=== PATIENT | female | born 1985 | race Caucasian/White ===

== ENCOUNTER → 2017-01-24 | Outpatient (CLI) | payer MEDICAID, SELFPAY | PROVIDERS: Visit Provider Nurse Practitioner Obstetrics & Gynecology | DX: Z34.80 Encounter for supervision of other normal pregnancy, unspecified trimester (principal) | CPT/HCPCS: 82731 ==

== ENCOUNTER → 2017-02-15 14:16 | Outpatient (REF) | payer MEDICAID, SELFPAY | LOC: LAB 14:16 | PROVIDERS: Visit Provider Nurse Practitioner Obstetrics & Gynecology | DX: Z34.90 Encounter for supervision of normal pregnancy, unspecified, unspecified trimester (principal) | CPT/HCPCS: 86403 ==

== ENCOUNTER → 2017-02-16 15:29 | Outpatient (REF) | payer MEDICAID, SELFPAY | LOC: LAB 15:29 | PROVIDERS: Visit Provider Nurse Practitioner Obstetrics & Gynecology ==

== ENCOUNTER 2017-02-24 23:45 | Inpatient (IN) | payer MEDICAID, SELFPAY ==
[2017-02-24 23:11] VITALS: PULSE 99; RESP 18; TEMP 36.8; O2SAT 99; BMI 27.1
[2017-02-25 00:05] LABS: Basophils % 0.2 % (0.1-2.0); Eosinophils # 0.2 K/mm3 (0.0-0.4); Eosinophils % 1.3 % (0.1-12.0); Hematocrit 34.6 % (37.0-47.0); Hemoglobin 11.5 g/dL (12.2-16.2); Lymphocytes # 2.2 K/mm3 (0.7-4.5); Lymphocytes % 18.7 K/mm3 (10-50); Mean Corpuscular HGB Conc 33.3 g/dL (31.8-35.4); Mean Corpuscular Hemoglobin 31.8 pg (27.0-31.2); Mean Corpuscular Volume 95.5 fl (81-99); Mean Platelet Volume 7.8 fl (7.4-10.4); Monocytes # 0.4 K/mm3 (0.1-1.0); Monocytes % 3.4 % (1.7-9.3); Neutrophils % 76.5 % (37.0-80.0); Platelet Count 306 K/mm3 (142-424); Red Blood Count 3.63 M/mm3 (4.20-5.40); Red Cell Distribution Width 12.9 % (11.5-17.5); White Blood Count 11.8 K/mm3 (4.8-10.8)
[2017-02-25 00:34] LABS: Fetal Membrane Rupture (Rapid) Positive (Negative)
--- NOTE | 2017-02-25 01:26 | HMH.ANESCL ---
[facility] Anesthesia Checklist - Patient Identification Patient Identification: Arm Band, Verbal (Name & ) - Structural Data Admitted From: Home Planned Operative Procedure/s: labor epidural Consent for Planned Operative Procedure(s) Verified: Yes - Chart Verification Results Verified: CBC - Additional verifications Patient : No Anesthesia Reactions: No Hx Blood Transfusions: No Blood Transfusion Reaction: No Cephalosporin Allergy: No Previous Colonoscopy: No - Cardiovascular Assessment Heart Sounds: S1 & S2 Pulse Strength: Strong Pulse Rhythm: Regular Peripheral Edema: No - Airway Assessment C-Spine Mobility Assessed: Yes TMJ Mobility Assessed: Yes Dentition: Good Dentition - Neurological Assessment Level of Consciousness: Awake, Alert, Appropriate Hx Seizures: No Numbness or tingling in extremities: No - Anesthesia Plan Anesthesia Risk discussed: Yes Anesthesia Plan: Verified ASA Class: II Anesthesia Type: Epidural [facility] Anesthesia HX I have reviewed the patient's past medical history: Yes Medical History: Reports:: Migraine, MRSA Other Surgeries: Yes: No Previous Surgery Amputation: No Fractures: No *Family Hx:: Hypertension, Cancer
--- NOTE | 2017-02-25 05:35 | HMH.OBAPHP ---
OB - H&P: HPI Antepartum - History of Present Illness Chief complaint: contractions - History of Present Obstetrical complications: none Medical complications: none Planning to breastfeed?: No - Labs Blood type: A (+) positive Rubella: immune RPR/VDRL: nonreactive GBS status: positive HBsAG: negative HMH History I have reviewed the patient's past medical history: Yes Medical History: Reports:: Migraine, MRSA Denies:: Seizures Other Medical History: Reports: Other ( labor with delivery @ 33 & 36 weeks). Denies: Blood Transfusion Reaction Other Surgeries: Yes: Other (deviated nasal septum) Amputation: No Fractures: No - *Social History Educational Level: Completed High School Smoking Status: Current every day smoker Tobacco Type: cigarettes # Packs/Day (cigarettes): 1 Alcohol Intake: never Alcohol Intake Frequency:: other Substance Use Type: denies use Occupational Status: employed Housing: house Household Members: family - Psychiatric History Expresses thoughts of harming self/others: None Suicide Plan Description: No Plan *Family Hx:: Hypertension, Cancer [facility] history: Spontaneous , Additional [facility] History ( labor/delivery) : 6 Para: 4 Review of Systems - Review of Systems + contractions x 4 hours. Denies VB but noted LOF after arrival to hospital. + grossly ruptured on exam; cervix 3-4cm. - Constitutional Comments: no complaints - Eyes Comments: no complaints - *Cardiovascular Comments: no complaints - *Respiratory Comments: no complaints - *Gastrointestinal Comments: denies N/V/D - *Genitourinary Comments: contractions, leakage of fluid - *Musculoskeletal Comments: no complaints - *Neurologic Comments: denies current/recent headaches Meds Home Medications Medication Instructions Recorded Confirmed Type ferrous sulfate 325 mg (65 mg 325 mg PO TID tab 02/03/17 02/25/17 History iron) tablet 1 tab PO QDAY 02/03/17 02/25/17 History vitamin,calcium,ghqqnjcd-ebru-aplij acid tablet Allergies Allergy/AdvReac Type Severity Reaction Status Date / Time No Known Allergies Allergy Verified 02/03/17 09:05 OB - H&P: Exam - Physical Exam Vital signs: Temp Pulse Resp Pulse Ox 98.2 F 99 H 18 99 02/24/17 23:11 02/24/17 23:11 02/24/17 23:11 02/24/17 23:11 - Constitutional no acute distress, average body habitus - Routine HEENT Exam Head: Present: normocephalic, atraumatic ENT: Present: mucous membranes moist - Routine Respiratory Exam Present: CTA bilaterally - Routine Cardiovascular Exam Present: RRR - Routine Abdominal Exam Present: soft (NT/ND) - Routine Exam External: Present: normal urethra appearance Comments: cervix 3-4/80/-1 Grossly ruptured with + pool - Routine Extremities Exam Present: pulses intact - Routine Skin Exam Present: intact, dry - Routine Neurological Exam Present: alert, oriented X3, normal speech - Routine Psychiatric Exam Present: normal affect - Detailed Labor and Delivery Exam Dilation (cm): 3 Effacement (%): 80 Cervix position: mid station: -1 Consistency: soft Membranes: ruptured Amniotic fluid: clear Baseline heart rate: 140 monitor decelerations: Periodic (intermittent late and mild variable decelerations) Contraction frequency (min): 3 OB - Results - Labs Labs: Short CBC 02/24/17 Range/Units 23:50 WBC 11.8 H (4.8-10.8) K/mm3 Hgb 11.5 L (12.2-16.2) g/dL Hct 34.6 L (37.0-47.0) % Plt Count 306 (142-424) K/mm3 - Impressions Active labor at term SROM Intermittent heart rate decelerations GBS positive Tobacco abuse Anemia History of delivery x2 OB - A/P Antepartum (1) Rupture of membranes with clear amniotic fluid Current visit: Yes Status: Acute Admit to L&D Anticipate
--- NOTE | 2017-02-25 05:44 | P.HP_ITS ---
OB - H&P: HPI Antepartum - History of Present Illness Chief complaint: contractions - History of Present Obstetrical complications: none Medical complications: none Planning to breastfeed?: No - Labs Blood type: A (+) positive Rubella: immune RPR/VDRL: nonreactive GBS status: positive HBsAG: negative HMH History I have reviewed the patient's past medical history: Yes Medical History: Reports:: Migraine, MRSA Denies:: Seizures Other Medical History: Reports: Other ( labor with delivery @ 33 & 36 weeks). Denies: Blood Transfusion Reaction Other Surgeries: Yes: Other (deviated nasal septum) Amputation: No Fractures: No - *Social History Educational Level: Completed High School Smoking Status: Current every day smoker Tobacco Type: cigarettes # Packs/Day (cigarettes): 1 Alcohol Intake: never Alcohol Intake Frequency:: other Substance Use Type: denies use Occupational Status: employed Housing: house Household Members: family - Psychiatric History Expresses thoughts of harming self/others: None Suicide Plan Description: No Plan *Family Hx:: Hypertension, Cancer [employer] history: Spontaneous , Additional [employer] History ( labor/ delivery) : 6 Para: 4 Review of Systems - Review of Systems + contractions x 4 hours. Denies VB but noted LOF after arrival to hospital. + grossly ruptured on exam; cervix 3-4cm. - Constitutional Comments: no complaints - Eyes Comments: no complaints - *Cardiovascular Comments: no complaints - *Respiratory Comments: no complaints - *Gastrointestinal Comments: denies N/V/D - *Genitourinary Comments: contractions, leakage of fluid - *Musculoskeletal Comments: no complaints - *Neurologic Comments: denies current/recent headaches Meds Home Medications Medication Instructions Recorded Confirmed Type ferrous sulfate 325 mg (65 mg 325 mg PO TID tab 02/03/17 02/25/17 History iron) tablet 1 tab PO QDAY 02/03/17 02/25/17 History vitamin,calcium,bvekfjce-ypok-jmpdi acid tablet Allergies Allergy/AdvReac Type Severity Reaction Status Date / Time No Known Allergies Allergy Verified 02/03/17 09:05 OB - H&P: Exam - Physical Exam Vital signs: Temp Pulse Resp Pulse Ox 98.2 F 99 H 18 99 02/24/17 23:11 02/24/17 23:11 02/24/17 23:11 02/24/17 23:11 - Constitutional no acute distress, average body habitus - Routine HEENT Exam Head: Present: normocephalic, atraumatic ENT: Present: mucous membranes moist - Routine Respiratory Exam Present: CTA bilaterally - Routine Cardiovascular Exam Present: RRR - Routine Abdominal Exam Present: soft (NT/ND) - Routine Exam External: Present: normal urethra appearance Comments: cervix 3-4/80/-1 Grossly ruptured with + pool - Routine Extremities Exam Present: pulses intact - Routine Skin Exam Present: intact, dry - Routine Neurological Exam Present: alert, oriented X3, normal speech - Routine Psychiatric Exam Present: normal affect - Detailed Labor and Delivery Exam Dilation (cm): 3 Effacement (%): 80 Cervix position: mid
--- NOTE | 2017-02-25 08:31 | HMH.DN ---
- Delivery Note Delivery Date:: 02/25/17 Delivery Time:: 06:00 Anesthesia Type: Epidural Was labor medically induced?: No Gestational age (weeks): 39 Infant delivered prior to 39 weeks?: No Gender: Male at 1 minute: 9 at 5 minutes: 9 LAC or MLE?: LAC Delivery Procedure:: Spontaneous vaginal delivery of vigorous liveborn male , over intact perineum. Nuchal cord x 1 reduced on perineum; no shoulder dystocia at time of delivery. Infant handed to nursing staff for assessment and SATHYA with mother. Placenta delivered spontaneously and noted intact. No perineal, vaginal or cervical lacerations. Bilateral periurethral lacerations present; hemostasis achieved with direct pressure and no repair needed. EBL 300cc. Mom/baby stable to recovery. Laceration:: labial (bilateral periurethral lacerations; no repair) Placental Delivery Description: Spontaneous
[2017-02-26 06:46] LABS: Hemoglobin 9.7 g/dL (12.2-16.2)
[2017-02-26 06:49] LABS: Hematocrit 28.8 % (37.0-47.0)
--- NOTE | 2017-02-26 13:45 | HMH.ACPN ---
Internal Medicine - PN: Subj *Date: 02/26/17 *Time: 12:45 Interval history: PPD #1 Ambulating, voiding and tolerating regular diet. Lochia appropriate; Hgb 9.7 (11.5 at admission) Mild/moderate cramping; asking for narcotics in addition to NSAIDS No repair with delivery Patient asking for discharge today even though infant will not be discharged until tomorrow. She states that she needs to go home to get her other children ready for school tomorrow and set their clothes out. Her children were being cared for by her oldest son (16 years old) yesterday and overnight, but reports that her father is with them today. tool machine shop supervisor has been called to assist with this request, since hospital policy requires an adult stay with any inpatient admissions under age 16, so she would need to stay with the infant even if she were discharged. Additionally, there is some concern about inconsistencies between record and patient report regarding care. Last documented visit in available record was at 18 weeks (10/2016), which was faxed to L&D 10/28/16 and it is unclear whether she had any additional visits with the office and it is a matter of a missing record, or whether she has not been seen since that time. The FOB also lives approx 3 hours away in [place] and will not be present with her after discharge; the patient was visiting him at the time she went into labor late monday night/monday morning, and drove herself from [place] back to [place] to the hospital. She wants to drive herself home at this time, but has recently been given narcotic pain medication. Given the various issues involved, the patient would be benefited by a social work consult prior to discharge, to ascertain whether any additional services are needed for this family. Exam Vital signs and Labs for Last 24 Hours: Temp Pulse Resp Pulse Ox 98.2 F 99 H 18 99 02/24/17 23:11 02/24/17 23:11 02/24/17 23:11 02/24/17 23:11 Laboratory Results - last 24 hr 02/26/17 06:15: Hgb 9.7 L, Hct 28.8 L I & O for Last 24 hours: Intake & Output 01/19/18 01/20/18 01/21/18 01/22/18 11:59 11:59 11:59 11:59 Weight 153 lb - Constitutional no acute distress - *Routine HEENT Exam ENT: Present: mucous membranes moist - *Routine Abdominal Exam Present: soft (non-tender/non-distended), normoactive bowel sounds - *Routine Extremities Exam Present: edema (trace) - *Routine Skin Exam Present: intact, dry, alopecia Assessment and Plan (1) Rupture of membranes with clear amniotic fluid Current visit: Yes Status: Acute Category: Medical Code(s): O42.019 - premature rupture of membranes, onset of labor within 24 hours of rupture, unspecified trimester (2) History of delivery, currently in third trimester Current visit: Yes Status: Chronic Category: Medical Code(s): O09.213 - Supervision of with history of pre-term labor, third trimester (3) Group B streptococcal infection during Current visit: Yes Status: Acute Category: Medical Code(s): O98.819 - Other maternal infectious and parasitic diseases complicating , unspecified trimester; B95.1 - Streptococcus, group B, as the cause of diseases classified elsewhere (4) Tobacco smoking affecting in third trimester Current visit: Yes Status: Chronic Category: Medical Code(s): O99.333 - Smoking (tobacco) complicating , third trimester (5) heart rate decelerations affecting management of mother Current visit: Yes Status: Acute Category: Medical Code(s): O36.8390 - Maternal care for abnormalities of the heart rate or rhythm, unspecified trimester, not applicable or unspecified (6) Anemia complicating , third trimester Current visit: Yes Status: Chronic Category: Medical Code(s): O99.013 - Anemia complicating , third trimester (7)
--- NOTE | 2017-02-26 13:57 | P.PN_ITS ---
Internal Medicine - PN: Subj *Date: 02/26/17 *Time: 12:45 Interval history: PPD #1 Ambulating, voiding and tolerating regular diet. Lochia appropriate; Hgb 9.7 (11.5 at admission) Mild/moderate cramping; asking for narcotics in addition to NSAIDS No repair with delivery Patient asking for discharge today even though infant will not be discharged until tomorrow. She states that she needs to go home to get her other children ready for school tomorrow and set their clothes out. Her children were being cared for by her oldest son (16 years old) yesterday and overnight, but reports that her father is with them today. acoustical tile carpenters supervisor has been called to assist with this request, since hospital policy requires an adult stay with any inpatient admissions under age 16, so she would need to stay with the infant even if she were discharged. Additionally, there is some concern about inconsistencies between record and patient report regarding care. Last documented visit in available record was at 18 weeks (10/2016), which was faxed to L&D 10/28/16 and it is unclear whether she had any additional visits with the office and it is a matter of a missing record, or whether she has not been seen since that time. The FOB also lives approx 3 hours away in [place] and will not be present with her after discharge; the patient was visiting him at the time she went into labor late monday night/monday morning, and drove herself from [place] back to [place] to the hospital. She wants to drive herself home at this time, but has recently been given narcotic pain medication. Given the various issues involved, the patient would be benefited by a social work consult prior to discharge, to ascertain whether any additional services are needed for this family. Exam Vital signs and Labs for Last 24 Hours: Temp Pulse Resp Pulse Ox 98.2 F 99 H 18 99 02/24/17 23:11 02/24/17 23:11 02/24/17 23:11 02/24/17 23:11 Laboratory Results - last 24 hr 02/26/17 06:15: Hgb 9.7 L, Hct 28.8 L I & O for Last 24 hours: Intake & Output 01/19/18 01/20/18 01/21/18 01/22/18 11:59 11:59 11:59 11:59 Weight 153 lb - Constitutional no acute distress - *Routine HEENT Exam ENT: Present: mucous membranes moist - *Routine Abdominal Exam Present: soft (non-tender/non-distended), normoactive bowel sounds - *Routine Extremities Exam Present: edema (trace) - *Routine Skin Exam Present: intact, dry, alopecia Assessment and Plan (1) Rupture of membranes with clear amniotic fluid Current visit: Yes Status: Acute Category: Medical Code(s): O42.019 - premature rupture of membranes, onset of labor within 24 hours of rupture, unspecified trimester (2) History of delivery, currently in third trimester Current visit: Yes Status: Chronic Category: Medical Code(s): O09.213 - Supervision of with history of pre-term labor, third trimester (3) Group B streptococcal infection during Current visit: Yes Status: Acute Category: Medical Code(s): O98.819 - Other maternal infectious and parasitic diseases complicating , unspecified trimester; B95.1 - Streptococcus, group B, as the cause of diseases classified elsewhere (4) Tobacco smoking affecting in third trimester Current visit: Yes Status: Chronic Category: Medical Code(s): O99.333 - Smoking (tobacco) complicating , third trimester (5) heart rate decelerations
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
== END 2017-02-26 16:35 | disposition home or self-care (01) | DRG 775 ==
PROVIDERS: Admitting Provider Obstetrics & Gynecology; PCP Nurse Practitioner Obstetrics & Gynecology; Visit Provider Nurse Practitioner Obstetrics & Gynecology
DX: O70.0 First degree perineal laceration during delivery; Z37.0 Single live birth; Z3A.39 39 weeks gestation of pregnancy; O69.81X0 Labor and delivery complicated by cord around neck, without compression, not applicable or unspecified
CPT/HCPCS: 59409; 36415; 59025; 84112; 85014; 85018; 85025; 86850; 94761; J0290

== ENCOUNTER → 2017-03-22 17:07 | Outpatient (REF) | payer MEDICAID, SELFPAY ==
[2017-03-25 19:04] LABS: Neisseria gonorrhoeae, NAA Negative (Negative)
== END ==
LOC: LAB 17:07
PROVIDERS: Visit Provider Nurse Practitioner Obstetrics & Gynecology
DX: Z39.2 Encounter for routine postpartum follow-up (principal); N89.8 Other specified noninflammatory disorders of vagina; L98.9 Disorder of the skin and subcutaneous tissue, unspecified
CPT/HCPCS: 87070; 87077; 87186; 87205; 87491; 87591

== ENCOUNTER → 2018-06-08 09:28 | Outpatient (CLI) | payer MEDICAID, SELFPAY ==
--- NOTE | 2018-06-08 09:40 | XR_ITS ---
XR wrist RT min 3V HISTORY right wrist pain ITS.REASON: ap lateral oblique ORDERING PHYSICIAN: Samra Pal MD PATIENT AGE: 33 years Comparison: None FINDINGS: No fracture or dislocation. No lytic or blastic change. There is normal mineralization.. The joint spaces are well-preserved. No significant degenerative/arthritic changes. No erosive changes evident.. There is a small well-circumscribed calcific density along the radial aspect of the ulnar styloid process and could be related to an old injury. IMPRESSION: No acute finding
== END ==
PROVIDERS: PCP Family Medicine; Visit Provider Orthopaedic Surgery
DX: M25.531 Pain in right wrist (principal)
CPT/HCPCS: 73110

== ENCOUNTER → 2020-03-25 15:08 | Outpatient (CLI) | payer OTHER, SELFPAY ==
[2020-03-25 15:46] LABS: Basophils # 0.1 K/mm3 (0-0.2); Basophils % 0.6 % (0.1-2.0); Eosinophils # 0.1 K/mm3 (0.0-0.4); Eosinophils % 1.3 % (0.1-12.0); Hematocrit 38.6 % (37.0-47.0); Hemoglobin 13.1 g/dL (12.2-16.2); Lymphocytes # 3.6 K/mm3 (0.7-4.5); Lymphocytes % 41.8 % (10-50); Mean Corpuscular Hemoglobin 31.6 pg (27.0-31.2); Mean Corpuscular Volume 92.8 fl (81-99); Mean Platelet Volume 6.8 fl (7.4-10.4); Monocytes # 0.3 K/mm3 (0.1-1.0); Neutrophils # 4.6 K/mm3 (1.8-7.8); Neutrophils % 53.3 % (37.0-80.0); Platelet Count 280 K/mm3 (142-424); Red Blood Count 4.16 M/mm3 (4.20-5.40); Red Cell Distribution Width 12.8 % (11.5-17.5); White Blood Count 8.7 K/mm3 (4.8-10.8)
[2020-03-27 17:36] LABS: HIV Screen 4th Generation wRfx Non Reactive (Non Reactive); Hepatitis B Surface Antigen Negative (Negative); Hepatitis C Antibody <0.1 s/co ratio (0.0-0.9); Rapid Plasma Reagin Ab Titer Non Reactive (NonRea<1:1); Rubella Antibodies, IgG 1.84 index (Immune >0.99)
== END ==
PROVIDERS: Visit Provider Nurse Practitioner Obstetrics & Gynecology
DX: Z34.90 Encounter for supervision of normal pregnancy, unspecified, unspecified trimester (principal); Z3A.01 Less than 8 weeks gestation of pregnancy
CPT/HCPCS: 36415; 85025; 86592; 86703; 86762; 86850; 87340; 87380; G0432

== ENCOUNTER → 2020-03-30 10:07 | Outpatient (CLI) | payer OTHER, SELFPAY ==
--- NOTE | 2020-03-30 10:13 | US_ITS ---
PROCEDURE: US OB <= 14 WEEKS FETUS CLINICAL INDICATION: US OB Before 14 wks for DATES COMPARISON: No exams were available for comparison FINDINGS: An intrauterine gestational sac is present with a pole with a crown-rump length of 0.44cm correlating to gestational age of 6weeks 1day. heart tones are present with an FHR of 116bpm. Yolk sac is noted. 2 cm left corpus luteum cyst IMPRESSION: Live IUP at 6 weeks 1 day Estimated due date by Ultrasound is 11/22/2020 Dictated by: Hira Rodríguez MD 03/30/2020 16:11 Hira Rodríguez MD in [place] 03/30/2020 16:11
== END ==
PROVIDERS: PCP Family Medicine; Visit Provider Nurse Practitioner Obstetrics & Gynecology
DX: O26.841 Uterine size-date discrepancy, first trimester (principal)
CPT/HCPCS: 76801

== ENCOUNTER → 2020-04-17 07:30 | Outpatient (CLI) | payer OTHER, SELFPAY ==
[2020-04-17 08:38] LABS: Chloride 107 mmol/L (98-107); Sodium 138 mmol/L (136-145)
[2020-04-17 08:39] LABS: Potassium 4.5 mmoL/L (3.5-5.1)
[2020-04-17 08:41] LABS: Alanine Aminotransferase 22 U/L (12-78); Albumin Level 4.2 g/dl (3.5-5.0); Albumin/Globulin Ratio 1.4 (1.1-1.8); Alkaline Phosphatase 56 U/L (38-126); Anion Gap 9.5 mEq/L (5-15); Aspartate Amino Transferase 26 U/L (14-36); Bilirubin,Total 0.6 mg/dl (0.2-1.3); Blood Urea Nitrogen 9 mg/dl (7-17); Calcium 9.3 mg/dl (8.4-10.2); Carbon Dioxide 26 mmol/L (22.0-30.0); Estimated Glomerular Filt Rate 139 ml/min (>60); GFR (African American) 168 ML/MIN (>60); Glucose 100 mg/dl (74-100); Total Protein,Serum 7.2 g/dl (6.3-8.2)
[2020-04-24 14:35] LABS: Bile Acids 1.8
== END ==
PROVIDERS: Visit Provider Nurse Practitioner Obstetrics & Gynecology
DX: O26.619 Liver and biliary tract disorders in pregnancy, unspecified trimester (principal); K83.1 Obstruction of bile duct
CPT/HCPCS: 36415; 80053; 82239

== ENCOUNTER → 2020-05-19 14:36 | Outpatient (CLI) | payer OTHER, SELFPAY | PROVIDERS: Visit Provider Nurse Practitioner Obstetrics & Gynecology | DX: Z36.0 Encounter for antenatal screening for chromosomal anomalies (principal) | CPT/HCPCS: 36415 ==

== ENCOUNTER → 2020-07-10 13:02 | Outpatient (CLI) | payer OTHER, SELFPAY ==
--- NOTE | 2020-07-10 13:02 | US_ITS ---
PROCEDURE: US OB >= 14 WEEKS FETUS CLINICAL INDICATION: 20 weeks gestation COMPARISON: US US OB <= 14 WEEKS FETUS from 03/30/2020 FINDINGS: Single live intrauterine gestation in cephalic presentation. heart and body motion noted. The cervix is closed and measures 4 cm in length. The placenta is fundal and anterior. Placenta is grade 1. Complete survey performed and was unremarkable on the submitted images as in PACS. No discrete anomalies identified on survey imaging by technologist. Active fetus. Three-vessel cord with satisfactory umbilical cord insertion. 4- chamber heart noted. Survey of brain & ventricles Unremarkable. Face and neck survey unremarkable. Diaphragm and chest views unremarkable. Abdomen: Both kidneys noted and unremarkable. Stomach noted and satisfactory. Spine: Survey of the spine satisfactory with no anomalies identified nor imaged. Both arms and legs noted. Amniotic Fluid: Adequate. Maternal adnexa: No significant findings. Measurements: Average ultrasound age 21weeks. Gestational Age 21weeks Estimated due date by ultrasound age 1011/20/2020. Estimated weight 382g BPD = 21weeks 4days OFD = 21weeks 1day HC = 20weeks 4days AC = 21weeks FL = 20weeks 6days Growth Percentile= 53% Heart Rate = 143bpm Cerebellum = 20weeks 6days Humerus = 20weeks 5days HC/AC is 1.15 CI is 0.81 FL/BPD is 0.67 FL/AC is 0.22 IMPRESSION: Live IUP which is in cephalic presentation with an average ultrasound age of 21 weeks 0 days. No obvious anomalies. Please see above for detail. Dictated by: Hira Rodríguez MD 07/10/2020 15:58 Hira Rodríguez MD in OV 07/10/2020 15:58
== END ==
PROVIDERS: PCP Family Medicine; Visit Provider Nurse Practitioner Obstetrics & Gynecology
DX: Z34.90 Encounter for supervision of normal pregnancy, unspecified, unspecified trimester (principal); Z3A.20 20 weeks gestation of pregnancy
CPT/HCPCS: 76805

== ENCOUNTER → 2020-09-09 10:37 | Outpatient (CLI) | payer OTHER, SELFPAY | PROVIDERS: Visit Provider Nurse Practitioner Obstetrics & Gynecology | DX: Z34.90 Encounter for supervision of normal pregnancy, unspecified, unspecified trimester (principal) | CPT/HCPCS: U0003 ==

== ENCOUNTER → 2020-09-12 08:58 | Outpatient (CLI) | payer OTHER, SELFPAY ==
[2020-09-12 09:23] LABS: Glucose,Fasting 92 mg/dl (74-100)
[2020-09-12 11:15] LABS: Glucose 1 Hour 126 mg/dL (74-100)
== END ==
PROVIDERS: Visit Provider Nurse Practitioner Obstetrics & Gynecology
DX: Z34.90 Encounter for supervision of normal pregnancy, unspecified, unspecified trimester (principal)
CPT/HCPCS: 82951

== ENCOUNTER → 2020-10-15 09:49 | Outpatient (CLI) | payer OTHER, SELFPAY ==
--- NOTE | 2020-10-15 10:07 | US_ITS ---
PROCEDURE: US KIDNEY CLINICAL INDICATION: COMPARISON: No exams were available for comparison FINDINGS: The right kidney is [id number]. No hydronephrosis, cortical thinning, or renal mass or perinephric fluid collection is evident. The left kidney is [id number]. No hydronephrosis, cortical thinning, or renal mass or perinephric fluid collection is evident. Incidental note made of cholelithiasis. IMPRESSION: Unremarkable bilateral renal ultrasound Cholelithiasis Dictated by: Hira Rodríguez MD 10/15/2020 17:27 Hira Rodríguez MD in OV 10/15/2020 17:27
== END ==
PROVIDERS: PCP Family Medicine; Visit Provider Nurse Practitioner Obstetrics & Gynecology
DX: Z34.90 Encounter for supervision of normal pregnancy, unspecified, unspecified trimester (principal); N20.0 Calculus of kidney
CPT/HCPCS: 76770

== ENCOUNTER → 2020-10-20 17:39 | Outpatient (CLI) | payer OTHER, SELFPAY | PROVIDERS: Visit Provider Nurse Practitioner Obstetrics & Gynecology | DX: Z34.90 Encounter for supervision of normal pregnancy, unspecified, unspecified trimester (principal); Z3A.35 35 weeks gestation of pregnancy | CPT/HCPCS: 86403 ==

== ENCOUNTER → 2020-10-30 09:21 | Outpatient (CLI) | payer OTHER, SELFPAY ==
--- NOTE | 2020-10-30 09:21 | US_ITS ---
PROCEDURE: US OB BIOPHYSICAL PROFILE CLINICAL INDICATION: Pt measuring Larger than dates TECHNIQUE: FINDINGS: Single live fetus is present in cephalic presentation. The cervix is closed measuring 3 cm. heart body motion noted. The placenta is anterior and grade 2. No previa or abruption. Average ultrasound age 36 weeks 5 days. Estimated weight is 3139 g which is 68th percentile BPD: 36weeks 4days OFD: 36weeks 4days HC: 35 weeks 6 days AC: 38 weeks 1 day FL: 36 weeks 1 day heart rate: 153bpm bpm. HC/AC: 0.93 Cephalic index: 0.81 FL/BPD: 0.78 FL/AC: 0.21 Amniotic fluid index: 14.08cm Qualitative AFV: 2 breathing movements: 2 Gross body movements: 2 Tone: 2 Biophysical profile score: 8 Doppler evaluation of the umbilical artery: SD ratio: 2.5 Resistive index: 0.6 No obvious anomalies evident. Placenta: Anterior and grade 2 Cervix: Closed measuring 3 cm IMPRESSION: Live IUP in cephalic presentation with an average ultrasound age 36 weeks 5 days. Estimated weight 3139 g which is 68th percentile. Anterior grade 2 placenta Biophysical profile 8 of 8 with normal amniotic fluid index of 14 cm. Umbilical artery SD ratio unremarkable at 2.5 with an unremarkable resistive index of 0.6 Dictated by: Hira Rodríguez MD 10/30/2020 13:26 Hira Rodríguez MD in OV 10/30/2020 13:26
== END ==
PROVIDERS: PCP Family Medicine; Visit Provider Nurse Practitioner Obstetrics & Gynecology
DX: O36.60X0 Maternal care for excessive fetal growth, unspecified trimester, not applicable or unspecified (principal); Z3A.36 36 weeks gestation of pregnancy
CPT/HCPCS: 76816; 76819

== ENCOUNTER 2020-10-30 22:18 | Inpatient (IN) | payer OTHER, SELFPAY ==
[2020-10-30 20:44] VITALS: BMI 27.4
[2020-10-30 21:01] VITALS: BP 128/89; PULSE 122; RESP 18; TEMP 36.6; O2SAT 97; BMI 27.4
[2020-10-30 21:22] LABS: Microscopic, Urine URINE MICROSCOPIC (MICROSCOPIC)
[2020-10-30 21:30] LABS: Appearance,Urine CLEAR (Clear); Bilirubin,Urine Negative (Negative); Blood, Urine Negative (Negative); Color,Urine YELLOW (Yellow); Glucose,Urine (UA) Negative (Negative); Ketones,Urine Negative (Negative); Leukocyte Esterase,Urine Negative (Negative); Nitrate,Urine Negative (Negative); Protein,Urine TRACE (Negative); Specific Gravity, Urine 1.025 (1.005-1.030); Urobilinogen,Urine 0.2 EU/dl (0.2)
[2020-10-30 21:41] LABS: Barbiturates Screen,Urine Negative ng/ml (<200)
[2020-10-30 21:42] LABS: Amphetamine/Metha Screen,Urine Negative ng/ml (<1000); Benzodiazepines Screen,Urine Negative ng/ml (<200)
[2020-10-30 21:43] LABS: Cannabinoid Screen,Urine Negative ng/ml (<50)
[2020-10-30 21:44] LABS: Cocaine Screen,Urine Negative ng/ml (<300); Methadone Screen,Urine Negative ng/ml (<300)
[2020-10-30 21:45] LABS: Opiate Screen,Urine Negative ng/ml (<300)
[2020-10-30 21:46] LABS: Phencyclidine Screen,Urine Negative ng/ml (<25)
[2020-10-30 22:37] LABS: Coronavirus 19, PCR Not Detected (NotDetected); Influenza A, PCR Not Detected (NotDetected); Influenza B, PCR Not Detected (NotDetected)
[2020-10-30 22:42] LABS: Bacteria,Urine 1+ /lpf; RBC,Urine Occasional #/hpf (0-3); Squamous Epithelial Cell,Urine Occasional #/hpf (0-5)
[2020-10-30 22:57] LABS: Basophils % 0.4 % (0.1-2.0); Eosinophils # 0.1 K/mm3 (0.0-0.4); Eosinophils % 1.2 % (0.1-12.0); Hematocrit 28.6 % (37.0-47.0); Hemoglobin 9.9 g/dL (12.2-16.2); Lymphocytes # 2.4 K/mm3 (0.7-4.5); Lymphocytes % 24.4 % (10-50); Mean Corpuscular HGB Conc 34.6 g/dL (31.8-35.4); Mean Corpuscular Hemoglobin 33.7 pg (27.0-31.2); Mean Corpuscular Volume 97.3 fl (81-99); Mean Platelet Volume 8.7 fl (7.4-10.4); Monocytes # 0.4 K/mm3 (0.1-1.0); Monocytes % 3.5 % (1.7-9.3); Neutrophils % 70.5 % (37.0-80.0); Platelet Count 333 K/mm3 (142-424); Red Blood Count 2.94 M/mm3 (4.20-5.40); Red Cell Distribution Width 14.4 % (11.5-17.5); White Blood Count 9.9 K/mm3 (4.8-10.8)
--- NOTE | 2020-10-30 23:57 | HMH.OBAPHP ---
OB - H&P: HPI Antepartum - History of Present Illness Chief complaint: Contractions and changes in her cervix History of present illness: She is a 35-year-old 6 para 5 at 36 and 5 weeks gestational age. She came in having regular contractions. She changed her cervix from 4 cm to 6 cm. She declined Brethine. She did receive a bolus of fluid but this did not settle her contractions. As result of that we are admitting her for labor and delivery. - History of Present Criteria for establishing EDC:: LMP confirmed by 1st trimester US care: good care Ultrasounds: normal 1st trimester US, normal mid trimester US Obstetrical complications: labor Medical complications: none - Labs Blood type: A (+) positive Rubella: immune RPR/VDRL: nonreactive GBS status: negative HBsAG: negative [facility] History I have reviewed the patient's past medical history: Yes Medical History: Reports:: Migraine, MRSA Denies:: Seizures *Have you ever received a pneumonia vaccine?: No *Have you received a flu vaccine this season?: No Other Medical History: Reports: Other. Denies: Blood Transfusion Reaction Other Surgeries: Yes: No Previous Surgery, Other. No: Amputation: No Fractures: No - *Social History Smoking Status: Current every day smoker Tobacco Type: cigarettes # Packs/Day (cigarettes): 1 Alcohol Intake: never Alcohol Intake Frequency:: other Substance Use Type: denies use *Occupational Status:: employed Housing: house Household Members: family *Travel in the last 8 weeks: None Family Hx:: Hypertension, Cancer APPLICATION PACKAGING SPECIALIST history: Spontaneous , Additional APPLICATION PACKAGING SPECIALIST History Para: 5 Review of Systems - Review of Systems Review of systems:: pertinent systems reviewed and negative unless documented below Meds Home Medications Medication Instructions Recorded Confirmed Type vitamins no.119-iron 1 tab PO DAILY 30 Days #30 tab 03/25/20 10/28/20 Rx fumarate 29 mg-folic acid 1 mg tablet acetaminophen 300 mg-codeine 30 mg 1 tab PO Q6H PRN #20 tab 06/04/20 10/28/20 Rx tablet ferrous sulfate 325 mg (65 mg 325 mg PO DAILY #30 tab 06/16/20 10/28/20 Rx iron) tablet acetaminophen 300 mg-codeine 30 mg 1 tab PO TID PRN #20 tab 10/14/20 10/28/20 Rx tablet nitrofurantoin 100 mg PO BID 10/14/20 10/28/20 History monohydrate/macrocrystals 100 mg capsule phenazopyridine 100 mg tablet 100 mg PO TID PRN 3 Days #9 tab 10/14/20 10/28/20 Rx hydroxyzine pamoate 25 mg capsule 25 mg PO TID PRN #90 cap 10/28/20 10/28/20 Rx Allergies Allergy/AdvReac Type Severity Reaction Status Date / Time No Known Allergies Allergy Verified 10/28/20 13:53 OB - H&P: Exam - Physical Exam Vital signs: Temp Pulse Resp BP Pulse Ox 97.9 F 122 H 18 128/89 97 10/30/20 21:01 10/30/20 21:01 10/30/20 21:01 10/30/20 21:01 10/30/20 21:01 - Constitutional no acute distress - Routine HEENT Exam Head: Present: normocephalic Eye: Present: EOMI, PERRL ENT: Present: mucous membranes moist - Routine Neck Exam Present: supple, full ROM - Routine Respiratory Exam Absent: accessory muscle use (good air entry bilaterally), respiratory distress, wheezes, crackles - Routine Cardiovascular Exam Present: RRR. Absent: murmur - Routine Abdominal Exam Present: soft, normoactive bowel sounds. Absent: tenderness, distended, guarding - Routine Rectal Exam Patient deferred: visual exam, digital exam - Routine Exam Patient deferred: external exam, groin exam, perineal exam - Routine Extremities Exam Present: full ROM. Absent: cyanosis, edema - Routine Skin Exam Present: intact. Absent: cyanosis - Routine Neurological Exam Present: alert, oriented X3 - Routine Psychiatric Exam Present: normal affect OB - Results - Labs Labs: Short CBC 10/30/20 Range/Units 22:26 WBC 9.9 (4.8-10.8) K/mm3 Hgb 9.9 L (12.2-16.2) g/dL Hct 28.6 L
--- NOTE | 2020-10-30 23:59 | HMH.LABNOT ---
Labor Note - Subjective: Date: 10/30/20 Time: 23:59 regular contraction - Objective: NST:: Reactive Contractions:: every 2-3 minutes Cervical Dilation:: 5-6 Effacement:: 75% Station: -1 Membranes: artificially ruptured - Fetus: Monitoring?: Yes monitoring type:: Internal and External Comment:: I inserted an IUPC after rupturing her membranes. - Assessment: Labor progressing?: Yes Cephalopelvic disproportion?: No Patient Problems: All Active Problems labor in third trimester with delivery (Acute) (Acute) - Plan: Anesthesia for epidural?: No Continue to labor down?: Yes Plan for ?: No Continue to monitor?: Yes Start pushing?: No
--- NOTE | 2020-10-31 02:04 | HMH.DN ---
- Delivery Note Delivery Date:: 10/31/20 Delivery Time:: 01:56 Anesthesia Type: None Was labor medically induced?: No Induction method: none Gestational age (weeks): 36 delivered prior to 39 weeks?: Yes Justification for early elective delivery:: Active Labor Infant Gender: Male at 1 minute: 9 at 5 minutes: 9 Delivery Procedure:: She is a 35-year-old 8 para 5 aborta 2 who was 36+ weeks gestational age. She came in having regular contractions. She declined Brethine. She received a fluid bolus and despite this she continued to have contractions. She progressed from 4 to 6 cm. We elected to rupture her membranes and augmented with oxytocin. She progressed to full dilation and delivered spontaneously a liveborn male child at 1:56 AM on the morning of October 31, 2020. On delivery of the head the anterior shoulder and the rest the 's body delivered atraumatically. The baby was vigorous. The oropharynx and nasopharynx were bulb suctioned. We allowed the cord to continue to pulsate for approximately 1 minute. The cord was then doubly clamped and cut and the was placed on the mother's abdomen for further care. The nurses assigned Apgars of 9 at 1 minute and 9 at 5 minutes. We then obtained cord blood. She received IV oxytocin and using gentle traction on the cord and countertraction the fundus I was able to easily deliver the placenta intact 3 minutes after delivery. It had a normal three-vessel cord. She has a positive blood, she is rubella immune and was group B streptococcus negative. Her front end specialist is Dr. Peterson. Estimated blood loss was approximately 300 cc. Placental Delivery Description: Spontaneous
[2020-10-31 03:51] VITALS: BP 127/90; PULSE 63; RESP 18; TEMP 36.6; O2SAT 99
[2020-10-31 07:43] LABS: Hematocrit 31.3 % (37.0-47.0); Hemoglobin 10.4 g/dL (12.2-16.2)
[2020-10-31 19:48] VITALS: BP 101/74; PULSE 74; RESP 18; TEMP 36.4; O2SAT 100
[2020-10-31 22:17] LABS: POC Glucose,Bedside 62 (70-110)
[2020-11-01 04:03] VITALS: BP 95/64; PULSE 78; RESP 16; TEMP 37.3; O2SAT 99
--- NOTE | 2020-11-01 11:10 | P.DS_ITS ---
General - General Admission date:: 10/30/20 Discharge date: 11/01/20 HPI - History of Present Illness History of present illness: She is a 35-year-old 8 para 5 aborta 2 who was 36 and 4 weeks gestational age. She came in in active labor. Hospital Course Hospital Course: She progressed from 4 to 6 cm and as result of that we elected to deliver her. She declined Brethine. She had her membranes ruptured and aggressive full dilation. She delivered spontaneously a liveborn male child at 1:56 AM in the morning of 31 October 2020. The baby weighed 7 pounds 1 ounce and was 18-1/2 inches long. He had Apgars of 9 at 1 minute and 9 at 5 minutes. She has done well and has remained afebrile throughout her hospitalization. She is eating and drinking and ambulating. She is bottlefeeding. Her data services developer is Dr. Goins. She has a positive blood, she is rubella immune and was group B streptococcus negative. She is discharged home to follow-up with me in approximately 2 weeks time. She will continue with her vitamins and iron. She was given the usual instructions with respect to limiting her activity, driving and sexual activity. She was given a prescription for Percocet 5/325 number 20 tablets. Her condition on discharge is stable and improved. Rhogam Administration: Not Indicated Objective Vital signs: Temp Pulse Resp BP Pulse Ox 99.1 F 78 16 95/64 L 99 11/01/20 04:03 11/01/20 04:03 11/01/20 04:03 11/01/20 04:03 11/01/20 04:03 no acute distress - *Routine HEENT Exam Head: Present: normocephalic Eye: Present: EOMI, PERRL ENT: Present: mucous membranes moist Results Labs on day of discharge: Labs from last 24 hours 10/31/20 05:55 POC Glucose 62 L DS: Diagnosis - Discharge Diagnosis (1) labor in third trimester with delivery Status: Acute (2) Advanced maternal age in multigravida Status: Acute Discharge Plan - Patient Discharge Instructions ACTIVITY: Continue current activity DIET: continue same diet Additional Instructions: Nothing in the vagina for 6 weeks No tub baths Drink plenty of fluids Patient Instructions: Depression, Hemorrhage, DI for Labor and Delivery, Vaginal , DI for Pre-eclampsia, [facility] Post Discharge Instructions, Preventing the Spread of Coronavirus Discharge Instructions - Follow up Plan Follow up with: Satish Perez MD [Primary Care Provider] - Disposition: Home, Self-Care Condition at discharge:: Stable Home Medications: Home Medications Medication Instructions Recorded Confirmed Type Ferrous Sulfate 325 mg PO DAILY 10/31/20 10/31/20 History Pjp394/Iron Fum/Folic/Docusate 1 tab PO DAILY 10/31/20 10/31/20 History [Se- 19 Tablet] Oxycodone HCl/Acetaminophen 1 tab PO Q4-6H PRN #20 tab 11/01/20 Rx [Percocet 5/325mg tablet] Prescriptions/Medication Reconciliation: New Oxycodone HCl/Acetaminophen [Percocet 5/325mg tablet] 1 tab PO Q4-6H PRN #20 tab PRN Reason: Severe Pain Continued Vxy484/Iron Fum/Folic/Docusate [Se-Katie 19 Tablet] 1 tab PO DAILY Ferrous Sulfate 325 mg PO DAILY - Problem Reconciliation Problems Reviewed?: Yes
== END 2020-11-01 18:00 | disposition home or self-care (01) | DRG 807 ==
LOC: OBOUT 22:19 → OB 22:19
PROVIDERS: Admitting Provider Nurse Practitioner Obstetrics & Gynecology; PCP Nurse Practitioner Obstetrics & Gynecology; Visit Provider Nurse Practitioner Obstetrics & Gynecology
DX: O60.14X0 Preterm labor third trimester with preterm delivery third trimester, not applicable or unspecified (principal); Z37.0 Single live birth; Z3A.36 36 weeks gestation of pregnancy
CPT/HCPCS: 59409; 36415; 59025; 76816; 76819; 80305; 81001; 82962; 85014; 85018; 85025; 86850; 94761; 96360; C1758; C9803; G0283; J0595; U0003; U0005

== ENCOUNTER 2020-11-25 01:13 | Emergency (ER) | payer OTHER, SELFPAY ==
[2020-11-25 01:42] VITALS: BMI 25.8
--- NOTE | 2020-11-25 01:50 | PC.NURSE ---
Addendum entered by Ifeoma Aburto RN 11/25/20 01:52: Continuation of prev note: Narcan 2mg IVP & Epi 0.1mg IVP @ 0102. Repeat Narcan & Epi @ 0106. EMS arrived to [facility] 0110- Asystole noted on rhythm check, CPR continued. 0111- Epi 0.1mg admin. FS 181. Attempting to obtain 2nd PIV. Manual BP attempted, Auto BP will not read. Sat 85%, lma/bag with 100% o2. 0113- Rhythm check continues asystole & resumed CPR. 2nd Epi admin. Obtained 2nd PIV (20g) RAC & blood drawn for labs. 0115-Rhythm check continues asystole & resumed CPR. 3rd Epi admin. 16fr Walker placed by Richard Adams RN. 0117- Rhythm check continues asystole. Pupils are fixed, non-reactive. MD states to terminate CPR. @0118 brought pt's boyfriend to conference room and MD with him. He had called pt's father. @0132 s/w pt's father Albino Stanton and he is on his way to ER. Original Note: EMS arrived with pt @ 0110. PD arrived on scene @ 0045 and admin 2mg narcan IN. EMS states they arrived on scene 0049. They began cpr and acls. LMA placed, 20g PIV to LAC. NNarcan 2mg
[2020-11-25 02:03] LABS: C-Reactive Protein 0.4 mg/L (0-4); Magnesium 2.3 mg/dl (1.6-2.3)
[2020-11-25 02:04] LABS: Anion Gap 24.7 mEq/L (5-15); Bilirubin,Total 0.4 mg/dl (0.2-1.3); Blood Urea Nitrogen 5 mg/dl (7-17); Carbon Dioxide 15 mmol/L (22.0-30.0); Chloride 105 mmol/L (98-107); Creatinine Clearance Estimated 126 mL/min (50-200); Estimated Glomerular Filt Rate 94 ml/min (>60); GFR (African American) 114 ML/MIN (>60); Glucose 320 mg/dl (74-100); Potassium 3.7 mmoL/L (3.5-5.1); Sodium 141 mmol/L (136-145)
[2020-11-25 02:05] LABS: Alanine Aminotransferase 60 U/L (12-78); Albumin Level 3.8 g/dl (3.5-5.0); Albumin/Globulin Ratio 1.4 (1.1-1.8); Alkaline Phosphatase 51 U/L (38-126); Aspartate Amino Transferase 93 U/L (14-36); Globulin 2.8 g/dL (1.3-3.2); Total Protein,Serum 6.6 g/dl (6.3-8.2)
[2020-11-25 02:06] LABS: Basophils # 0.1 K/mm3 (0-0.2); Basophils % 0.7 % (0.1-2.0); Eosinophils # 0.3 K/mm3 (0.0-0.4); Eosinophils % 1.6 % (0.1-12.0); Hematocrit 41.4 % (37.0-47.0); Hemoglobin 12.3 g/dL (12.2-16.2); Lymphocytes # 9.3 K/mm3 (0.7-4.5); Lymphocytes % 55.1 % (10-50); MANUAL DIFFERENTIAL MANUAL DIFFERENTIAL (MANUAL DIFF); Mean Corpuscular HGB Conc 29.7 g/dL (31.8-35.4); Mean Corpuscular Hemoglobin 32.6 pg (27.0-31.2); Mean Corpuscular Volume 109.7 fl (81-99); Mean Platelet Volume 8.6 fl (7.4-10.4); Monocytes # 0.6 K/mm3 (0.1-1.0); Monocytes % 3.8 % (1.7-9.3); Neutrophils # 6.5 K/mm3 (1.8-7.8); Neutrophils % 38.7 % (37.0-80.0); Platelet Count 255 K/mm3 (142-424); Red Blood Count 3.77 M/mm3 (4.20-5.40); Red Cell Distribution Width 12.3 % (11.5-17.5); White Blood Count 16.8 K/mm3 (4.8-10.8)
[2020-11-25 02:17] LABS: Troponin I 0.01 ng/ml (0.00-0.034)
[2020-11-25 02:18] LABS: Procalcitonin 0.032 ng/mL (0.0-2.0)
--- NOTE | 2020-11-25 02:18 | PC.NURSE ---
Vipul Camargo in ED at this time.
--- NOTE | 2020-11-25 02:20 | PC.NURSE ---
family at bedside at this time.
--- NOTE | 2020-11-25 02:26 | HMH.EDCPR ---
ED Disposition Clinical Impression: Cardiopulmonary arrest Disposition: Condition on Discharge: Additional Instructions: 0117 Referrals: Chris Goins MD [Primary Care Provider] - - Critical Care Critical Care Time: No Attestation: On 11/25/20, the high probability of a clinically significant, sudden or life threatening deterioration of the following system(s) required my full and direct attention, intervention and personal management. The time I documented below is in addition to time spent performing reported procedures but includes the following listed in this critical care notation. [facility] Code Documentation - Arrest Information Outside of Hospital The Code Document Section documentation for [id number] Marsha Munoz was populated with data that defaulted in from the immigration lawyer in the Code Assessment on f_Reg Service Date] to provide within this report, the status and treatment of the patient in the ED during a Code. This documentation will be supplemented with my direct findings within the body of the report. Date Treatment Initiated: 11/25/20 Time Treatment Initiated: 00:45 Treatment Initiated By: PD Location of Arrest: home Arrest Witnessed: No - ALS Code Inititation ALS Initiated By: EMS ALS Type: ACLS ALS Initiated Start Time: 00:45 - Patient Condition At Code Start Condition of Patient at Start of Code: Pulseless, Apneic, Unconscious Monitoring Devices: ECG Monitor, Pulse Oximeter, Apnea Monitor - Circulation Initial Cardiac Rhythm: Asystole - Oxygenation Oxygen Breathing Status: Assisted - Labs Fingerstick Blood Glucose: 181 - Procedures ABG's Drawn: No Labs Drawn: Yes - Code End Time Code Ended: 00:17 Patient Successfully Resuscitated: No Reason Code Ended: - Efforts Terminated Family Members Present During Code: Yes Names of All Individuals Present at Code: Sera Leo RN, Anthony Maldonado RN, Zeinab Lopez RN, Richard Adams RN, Shannon Ngo RD, Anton Marvin RT, Shira RT, tax technician Summer, spud grader CC, technical delivery manager Danisha Paige - Mental Status Motor Response: None Verbal Response: None - Patient Expiration Date: 11/25/20 Expiration Time: 01:17 Pronounced by: Dr. Stewart Time Pronounced: 01:17 Post Mortem Care Provided: Yes Next of Kin Notified: father- Albino Stanton Next of Kin Notification Time: 01:34 Medical Decision Making - Medical Records Medical records reviewed: Yes: I reviewed the patient's medical records. - Pieter Inquiry Pt receiving controlled substance: No - Lab Data Lab results reviewed: Yes: I reviewed the patient's lab results. Lab Results 11/25/20 01:30: WBC 16.8 H, RBC 3.77 L, Hgb 12.3, Hct 41.4, MCV 109.7 H, MCH 32.6 H, MCHC 29.7 L, RDW 12.3, Plt Count 255, MPV 8.6, Neut % (Auto) 38.7, Lymph % (Auto) 55.1 H, [place] % (Auto) 3.8, Eos % (Auto) 1.6, Baso % (Auto) 0.7, Neut # (Auto) 6.5, Lymph # (Auto) 9.3 H, [place] # (Auto) 0.6, Eos # (Auto) 0.3, Baso # (Auto) 0.1 11/25/20 01:30: Sodium 141, Potassium 3.7, Chloride 105, Carbon Dioxide 15 L, Anion Gap 24.7 H, BUN 5 L, Creatinine 0.70, Estimated Creat Clear 126, Estimated GFR 94, Est GFR ( Amer) 114, Glucose 320 H, Calcium 9.0, Magnesium 2.3, Total Bilirubin 0.4, AST 93 H, ALT 60, Alkaline Phosphatase 51, Troponin I 0.01, C-Reactive Protein 0.4, Total Protein 6.6, Albumin 3.8, Globulin 2.8, Albumin/Globulin Ratio 1.4, Procalcitonin 0.032 Result diagrams: 11/25/20 01:30 11/25/20 01:30 Orders (Tests/Meds): ED MEDICATIONS Generic Name Dose Route Start Last Admin Trade Name Freq PRN Reason Stop Dose Admin Epinephrine HCl 1 mg 11/25/20 01:44 11/25/20 01:15 Epinephrine 0.1 Mg/Ml 10ml Syringe (Crash Cart) IV 12/25/20 01:43 1 mg NEEDED PRN Administration Code Blue Med Administration ORDERS Category Date Time Status Complete Blood Count Auto Diff Stat Lab 11/25/20 01:30 Results CPR HPI - General Stated Complaint: code Time Seen by
[2020-11-25 02:29] LABS: Eosinophils % 3 % (0-3); Lymphocytes % 60 % (10-50); Macrocytosis 2+; Monocytes % 4 % (2-9); Neutrophils % 33 % (42-76); Platelet Estimate Normal; Total Cells Counted 100
[2020-11-25 02:30] LABS: Spherocytes 1+
--- NOTE | 2020-11-25 03:39 | PC.NURSE ---
Called Nasreen @0240, s/w German Gaitan. Father tells staff now that pt is legally and does not remember the name of her legal . Updated NASREEN. They will call back. NASREEN called back @ 0332, s/w German Gaitan. Father still with pt. Pt is not registered and unable to obtain authorization and they will elect to defer pt.
[2020-11-25 05:15] VITALS: BP 00/0; PULSE 0; RESP 0; TEMP -17.7; TEMP 0; O2SAT 0
== END 2020-11-25 05:08 | disposition expired ==
PROVIDERS: Emergency Provider Emergency Medicine; PCP Family Medicine
DX: I46.9 Cardiac arrest, cause unspecified (principal)
CPT/HCPCS: 80053; 83735; 84145; 84484; 85007; 85025; 86140; 93041; 96374; 96375; 99283